=== PATIENT | male | born 1980 | race Caucasian/White ===

== ENCOUNTER 2018-11-13 13:26 | Emergency (ER) | payer BC ==
[~2018-11-13] VITALS: Ht 182.9 cm; Wt 70.5 kg
[2018-11-13 13:31] VITALS: TEMP 97.7
[2018-11-13 14:46] LABS: BASO # 0.1 (0.0-0.2); BASO % 0.9 % (0.0-2.0); EOS % 0.2 % (0-4.0); GRAN # 4.8 (1.4-6.5); GRAN % 74.2 % (42.2-75.2); HEMATOCRIT 46.2 % (42.0-52.0); HEMOGLOBIN 15.8 g/dl (13.5-18.0); LYMPH # 1.2 (1.2-3.4); LYMPH % 18.8 % (20.0-51.0); MEAN CELL VOLUME 100 fl (80.0-100.0); MEAN CORPUSCULAR HEMOGLOBIN 34 pg (27.0-31.0); MEAN CORPUSCULAR HGB CONC 34 g/dl (33.0-37.0); MEAN PLATELET VOLUME 9.5 fl (7.4-10.4); MONO # 0.4 (0.1-0.6); MONO % 5.7 % (1.7-9.3); PLATELET COUNT 210 K/mm3 (130-400); RED BLOOD COUNT 4.62 M/mm3 (4.20-5.60); REDCELL DISTRIBUTION WIDTH-CV 13.3 % (11.5-14.5)
[2018-11-13 14:55] LABS: CREATININE, serum 0.87 (0.66-1.25)
[2018-11-13 14:56] LABS: ALBUMIN 4.4 gm/dL (3.5-5.0); BILIRUBIN,TOTAL 0.5 mg/dL (0.0-1.0); CALCIUM 8.9 mg/dL (8.4-10.2); POTASSIUM 4.3 mmol/L (3.4-5.0); TOTAL PROTEIN 7.5 gm/dL (6.4-8.2)
[2018-11-13 15:42] LABS: COLLECTION METHOD CLEAN CATCH
[2018-11-13 15:52] LABS: PH 5 (5-8); SQUAMOUS EPITHELIAL None Seen /hpf; URINE APPEARANCE Clear; URINE BACTERIA None Seen /hpf; URINE BILIRUBIN Negative (NEGATIVE); URINE BLOOD Negative (NEGATIVE); URINE COLOR Colorless; URINE GLUCOSE Negative (NEGATIVE); URINE KETONE Negative (NEGATIVE); URINE LEUKOCYTE ESTERASE Negative (NEGATIVE); URINE NITRATE Negative (NEGATIVE); URINE PROTEIN(semi-quant) Negative (NEGATIVE); URINE RBC 0-2 /hpf; URINE UROBILINOGEN Negative (NEGATIVE)
[2018-11-13 16:10] LABS: TRICYCLIC ANTIDEPRESS URINE NEGATIVE
[2018-11-13] MEDS ORDERED: FLEXERIL5 MG PO (16:28)
[2018-11-13 18:39] VITALS: BP 119/80; PULSE 80
== END 2018-11-13 18:41 | disposition home or self-care (01) ==
LOC: COL.ER 13:26
PROVIDERS: Physician Assistant
DX: S16.1XXA Strain of muscle, fascia and tendon at neck level, initial encounter (principal); S30.0XXA Contusion of lower back and pelvis, initial encounter; F10.129 Alcohol abuse with intoxication, unspecified; F17.210 Nicotine dependence, cigarettes, uncomplicated; W18.30XA Fall on same level, unspecified, initial encounter; Y92.009 Unspecified place in unspecified non-institutional (private) residence as the place of occurrence of the external cause
CPT/HCPCS: J7030

== ENCOUNTER 2019-12-26 02:10 | Emergency (ER) | payer BC ==
[~2019-12-26] VITALS: Ht 182.9 cm; Wt 72.7 kg
[~2019-12-26 02:10] MED LIST: FLEXERIL5 MG PO
[2019-12-26] MEDS ORDERED: CYMBALTA 60MG60 MG PO (02:18)
[2019-12-26] MEDS ORDERED: DESYREL 50MG50 MG PO (02:18)
[2019-12-26 05:12] VITALS: BP 123/76; PULSE 86; TEMP 97.7
== END 2019-12-26 05:12 | disposition home or self-care (01) ==
LOC: COL.ER 02:10
DX: S01.81XA Laceration without foreign body of other part of head, initial encounter (principal); S09.21XA Traumatic rupture of right ear drum, initial encounter; Z23 Encounter for immunization; R40.2412 Glasgow coma scale score 13-15, at arrival to emergency department; W01.190A Fall on same level from slipping, tripping and stumbling with subsequent striking against furniture, initial encounter; Y92.009 Unspecified place in unspecified non-institutional (private) residence as the place of occurrence of the external cause

== ENCOUNTER → 2023-04-29 | Outpatient (CLI) | payer BC ==
[~2023-04-29] MED LIST changes: +CYMBALTA 60MG60 MG PO; +DESYREL 50MG50 MG PO
== END ==
LOC: COL.RAD 09:25
DX: N50.89 Other specified disorders of the male genital organs (principal)